=== PATIENT | male | born 1960 | race Caucasian/White ===

== ENCOUNTER 2023-10-21 08:29 | Emergency (ER) | payer OTHER ==
--- OUTSIDE RECORDS SUMMARY | 2023-10-21 08:34 | XMS REPORT | Continuity of Care Document ---
Author Name Unknown Address [address] [facility] [address] [place] [address] [facility] Address [address] [facility] [place] [address] Care Team Providers Care Dial Polisher Name Role Phone [email or web address] Attending Clinician Unavailable BAILEY PENG Attending Clinician Unavailable YAMILE MIGUEL Attending Clinician Unavailable [id number] Attending Clinician Unavailable FELICIANO GÓMEZ Attending Clinician Unava ilable MD MEMO Attending Clinician Unavailab NATALIO Back Attending Clinician Unavailable 39, HOLTER Attending Clinician Unavailable CESAR THOMAS Attending Clinician Unav ailable LAB47 Attending Clinician Unavailable MC, TECH 1 Attending Clinician Unavailable LAB39 Attending Clinician Unavailable MANJULA AUSTIN Attending Clinician Unavailable PL, TECH 1 Attending Clinician Unavailable [id number] Attending Clinician Unavailable CLARA ROSE Attending Clinician Unavailable SYMONE LAGUNA Attending Clinician Unavailable MACKENZIE BUTTS Attending Clinician Unavai lable JODI SELLERS Attending Clinician Unavailable SABINO YUEN Attending Clinician Unavailable WYATT TOLEDO Attending Clinician Unav ailable Neil Neff Attending Clinician [phone] Madi Adams Attending Clinician Unavailable SABINO YUEN Admitting Clinician Unavailable WYATT TOLEDO Admitting Clinician Unav ailable Cupit, Neil Ken [id number] Payers Payer Name Policy Type Policy Number Effective Date Expirati on Date Source Self Pay P [id number] 2022 00:00:00 [facility] MIC[facility] S[facility]NEY COPAY FOCUS 9 [id number] 2023 00:00:00 Problems Condition Name Condition Details Condition Category Status Onset Date Resolution Date Last Treatment Date Treating Clinician Comments Source Medication side effect Medication side effect Disease Active 6-12 00:00: 00 Brandy Cheng - Externa l Pre-op evaluation Pre-op evaluation Disease Active -23 00:00: 00 Brandy Ferguson Externa l Shortness of breath Shortness of breath Disease Active 03-22 00:00: 00 Brandy Ferguson Externa yaima HFrEF (heart failure with reduced ejection fraction) (multi HCC) HFrEF (heart failure with reduced ejection fraction) (multi HCC) Disease Active 03-22 00:00: 00 Brandy Teixeiraa yaima Non-ischem ic cardiomyop athy (multi HCC) Non-ischem ic cardiomyop athy (multi HCC) Disease Active 03-22 00:00: 00 Brandy Teixeiraa yaima Statin intoleranc e Statin intoleranc e Disease Active 03-22 00:00: 00 Brandy Cheng - Externa l Exposure to STD Condition Active 07-01 00:00: 00 2020-07-01 15:43:54 [facility] Screening for std Condition Active 07-01 00:00: 00 2020-07-01 15:43:54 [facility] Allergies, Adverse Reactions, Alerts Allergy Name Allergy Type Status Severity Reaction(s) Onset Date Inactive Date Treating Clinician Comments Source Nitrogly cerin Propensi ty to adverse reaction s Active Rash 03-22 00:00: 00 Brandy Ferguson Externa l Social History Social Habit Start Date Stop Date Quantity Comments Source Sexual orientation Jasmin Cheng - External Alcoholic beverage intake 2023-08-03 00:00:00 2023-08-03 00:00:00 Ex-drinker (finding) Brandy Cheng - External History of Social function 2023-05-22 00:00:00 2023-05-22 00:00:00 Brandy Cheng - External Tobacco use and exposure 2023-05-22 00:00:00 2023-05-22 00:00:00 Smokeless tobacco non-user Brandy Cheng - External Alcohol intake 2023-04-19 00:00:00 2023-04-19 00:00:00 Current drinker of alcohol (finding) Brandy Cheng - External Alcohol Comment 2023-03-22 00:00:00 2023-03-22 00:00:00 rarely Brandy Cheng - External PHQ2 Questionairre Score 2020-07-01 09:27:51 2020-07-01 09:27:51 [facility] if the patient is using/has used a vaping item, Current, Former, Never Used, Not asked 2020-07-01 09:27:51 2020-07-01 09:27:51 No [facility] sex at 2020-07-01 09:27:51 2020-07-01 09:27:51 Male [facility] Occupation #1 2020-07-01 09:27:51 2020-07-01 09:27:51 Unemployed [facility] sexual orientation 2020-07-01 09:27:51 2020-07-01 09:27:51 Heterosexual [facility] drug use 2020-07-01 09:27:51 2020-07-01 09:27:51 Never [facility] alcohol use 2020-07-01 09:27:51 2020-07-01 09:27:51 Currently [facility] social history reviewed E&M 2020-07-01 09:27:51 2020-07-01 09:27:51 reviewed today [facility] is there any chance that you could be ? 2020-07-01 09:27:51 2020-07-01 09:27:51 No [facility] Sex assigned at 1960 00:00:00 1960 00:00:00 Brandy Ferguson External Smoking Status Start Date Stop Date Source Never smoked tobacco Brandy Cheng - External Medications Ordered Medication Name Filled Medication Name Start Date Stop Date Current Medication? Ordering Clinician Indication Dosage Frequency Signature (SIG) Comments Components Source Coenzyme Q10 (COQ10 OR) 08-02 10:40: 11 Yes Take by mouth. Brandy erwin Sacubitril- Valsartan (Entresto) 24-26 MG oral Tablet 07-27 00:00: 00 Yes [id number] 24mg Take 24-26 mg by mouth 2 times daily. Brandy erwin Coenzyme Q10 (COQ10 OR) 07-25 14:13: 52 Yes Take by mouth. Brandy erwin Empaglifloz in (Jardiance) 10 MG oral Tablet 07-25 00:00: 00 Yes [id number] 10mg Take 1 tablet (10 mg total) by mouth daily. Brandy erwin Coenzyme Q10 (COQ10 OR) 07-18 10:43: 53 Yes Take by mouth. Brandy erwin Cetirizine HCl (ZyrTEC Allergy) 10 MG oral Capsule 07-18 00:00: 00 08-02 00:00 :00 No [id number] 10mg Take 1 capsule (10 mg total) by mouth daily. Brandy erwin Albuterol HFA 108 (90 Base) MCG/ACT IN AERS 07-18 00:00: 00 07-25 00:00 :00 No [id number] 2{puff} Q.25D Inhale 2 puffs into the lungs every 6 hours as needed for wheezing. Brandy erwin Naproxen 500 MG oral Tablet 06-13 00:00: 00 Yes 500mg Q.5D Take 1 tablet (500 mg total) by mouth 2 times daily as needed (pain, take with food). Brandy erwin Lisinopril 5 MG oral Tablet 06-05 00:00: 00 Yes 5mg Take 1 tablet (5 mg total) by mouth daily. Brandy erwin Carvedilol 6.25 MG oral Tablet 06-05 00:00: 00 Yes 6.25mg Take 1 tablet (6.25 mg total) by mouth in the morning and 1 tablet (6.25 mg total) in the evening. Take with meals. Brandy erwin Coenzyme Q10 (COQ10 OR) 05-21 14:31: 08 Yes Take by mouth. Brandy erwin Azithromyci n 250 MG oral Tablet 05-21 00:00: 00 05-27 04:59 :00 No [id number] Take 2 tablets by mouth on day 1 then 1 tablet by mouth daily for 4 days thereafter .. Brandy erwin Furosemide (LASIX) 20 MG oral Tablet 05-21 00:00: 00 05-27 04:59 :00 No [id number] 20mg Take 1 tablet (20 mg total) by mouth daily for 5 days. Brandy erwin Furosemide 40 MG oral Tablet 05-16 00:00: 00 Yes 40mg QD Take 1 tablet (40 mg total) by mouth daily as needed. Brandy erwin Coenzyme Q10 (COQ10 OR) 03-22 08:27: 15 Yes Take by mouth. Brandy erwin Carvedilol 3.125 MG oral Tablet 03-22 00:00: 00 Yes 3.125mg Take 1 tablet (3.125 mg total) by mouth in the morning and 1 tablet (3.125 mg total) in the evening. Take with meals. Brandy erwin Lisinopril 2.5 MG oral Tablet 03-22 00:00: 00 Yes 2.5mg Take 1 tablet (2.5 mg total) by mouth daily. Brandy erwin Furosemide 40 MG oral Tablet 03-22 00:00: 00 Yes 40mg QD Take 1 tablet (40 mg total) by mouth daily as needed. Brandy erwin Vital Signs Vital Name Observation Time Observation Value Comments S ourdustin Body height 2023-08-03 15:32:00 177.8 cm Christina Andino Body weight 2023-08-03 15:32:00 80.74 kg Christina ey Seybold - External BMI 2023-08-03 15:32:00 25.54 kg/m2 Christina ey Seybold - External Systolic blood pressure 2023-07-26 19:12:00 118 mm[Hg] Brandy Seybo ld - External Diastolic blood pressure 2023-07-26 19:12:00 72 mm[Hg] Brandy Seybo ld - External Heart rate 2023-07-26 19:12:00 76 /min Kelse y Seybold - External Body temperature 2023-07-26 19:12:00 36.94 Sis Brandy Seybold - External Respiratory rate 2023-07-26 19:12:00 18 /min Brandy Seybold - External Body height 2023-07-26 19:12:00 177.8 cm Christina ey Seybold - External Body weight 2023-07-26 19:12:00 80.74 kg Christina ey Seybold - External BMI 2023-07-26 19:12:00 25.54 kg/m2 Christina ey Seybold - External Oxygen saturation in Arterial blood by Pulse oximetry 2023-07-26 19:12:00 95 /min Brandy Seybo ld - External Systolic blood pressure 2023-07-19 15:42:00 118 mm[Hg] Brandy Seybo ld - External Diastolic blood pressure 2023-07-19 15:42:00 72 mm[Hg] Brandy Seybo ld - External Heart rate 2023-07-19 15:42:00 63 /min Yayase y Seybold - External Body temperature 2023-07-19 15:42:00 36.17 Sis Brandy Seybold - External Respiratory rate 2023-07-19 15:42:00 16 /min Brandy Seybold - External Body height 2023-07-19 15:42:00 177.8 cm Christina ey Seybold - External Body weight 2023-07-19 15:42:00 78.926 kg Christina ey Seybold - External BMI 2023-07-19 15:42:00 24.97 kg/m2 Christina ey Seybold - External Oxygen saturation in Arterial blood by Pulse oximetry 2023-07-19 15:42:00 94 /min Brandy Marinao ld - External Oxygen saturation in Arterial blood by Pulse oximetry 2023-06-21 13:29:00 99 /min Brandy Marinao ld - External Systolic blood pressure 2023-06-21 13:29:00 113 mm[Hg] Brandy Katybo ld - External Diastolic blood pressure 2023-06-21 13:29:00 74 mm[Hg] Brandy Katybo ld - External Heart rate 2023-06-21 13:29:00 65 /min Kelse y Seybold - External Respiratory rate 2023-06-21 13:29:00 16 /min Brandy Katybold - External Body height 2023-06-21 13:29:00 177.8 cm Christina ramachandran Seybold - External Body weight 2023-06-21 13:29:00 79.379 kg Christina ey Seybold - External BMI 2023-06-21 13:29:00 25.11 kg/m2 Christina ey Seybold - External Systolic blood pressure 2023-05-22 19:31:00 110 mm[Hg] Brandy Katybo ld - External Diastolic blood pressure 2023-05-22 19:31:00 90 mm[Hg] Brandy Marinao ld - External Heart rate 2023-05-22 19:31:00 80 /min Kelse y Seybold - External Body temperature 2023-05-22 19:31:00 36.67 Sis Brandy Seybold - External Respiratory rate 2023-05-22 19:31:00 16 /min Brandy Ktaybold - External Body weight 2023-05-22 19:31:00 80.287 kg Christina ey Seybold - External BMI 2023-05-22 19:31:00 25.40 kg/m2 Christina ey Seybold - External Oxygen saturation in Arterial blood by Pulse oximetry 2023-05-22 19:31:00 99 /min room air Brandy Marinao ld - External blood pressure, diastolic 2020-07-01 09:27:51 87 mm[Hg] [facility] blood pressure, systolic 2020-07-01 09:27:51 146 mm[Hg] [facility] oxygen saturation, oximetry 2020-07-01 09:27:51 98 /min [facility] pulse rate 2020-07-01 09:27:51 67 /min Leg y [facility] temperature E&M 2020-07-01 09:27:51 98.0 [degF[facility] 2020-07-01 09:27:51 207 [facility]lb[facility]av[facility] 2020-07-01 09:27:51 94.09 kg [facility] height in centimeters E&M 2020-07-01 09:27:51 177.80 cm [facility] temperature site 2020-07-01 09:27:51 oral [facility] Procedures Procedure Date / Time Performed Performing Clinician Source SLEEP PAP DATA DOWNLOAD 2023-06-21 13:36:08 Ronald Peng Seybsergei - External CHEST PA LATERAL 2023-05-22 21:09:35 Clara Rose Seybsergei - External Azithromycin oral 2020-07-01 10:55:09 Neil Neff Leg leela [facility] En[facility]ters Start Date/Time End Date/Time Encounter Type Admission Type Attending Clinicians Care Facility Care Department Encounter ID Source 2022-04-01 07:49:[address] [facility] [id number] [facility] 2022-03-08 09:35:34 Outpatient D [facility] [id number] - [id number] [facility] 2021-03-11 10:51:07 Outpatient D [facility] [id number] - [id number] [facility] ent 2023-10-09 00:00:00 2023-10-09 00:00:00 Outpatient BAILEY PENG [id number] [facility] 2023-10-09 00:00:00 2023-10-09 00:00:00 Outpatient YAMILE MIGUEL [id number] [facility] 2023-10-09 00:00:00 2023-10-09 00:00:00 Outpatient YAMILE MIGUEL [id number] [facility] 2023-08-30 00:00:00 2023-08-30 00:00:00 Outpatient BRANDY BOURGEOIS [id number] Brandy Katybsergei 2023-08-23 09:30:00 2023-08-23 09:30:00 Outpatient YAMILE MIGUEL BRANDY [id number] Brandy Katybsergei 2023-08-18 15:00:00 2023-08-18 15:00:00 Outpatient BRANDY BOURGEOIS [id number] Brandy Katybsergei 2023-08-16 00:00:00 2023-08-16 00:00:00 Outpatient YAMILE MIGUEL BRANDY BRANDY [id number] Brandy Katybsergei 2023-08-15 00:00:00 2023-08-15 00:00:00 Outpatient YAMILE MIGUEL BR[facility] BOURGEOIS [id number] [facility] 2023-08-15 00:00:00 2023-08-15 00:00:00 Outpatient YAMILE MIGUEL BR[facility] BOURGEOIS [id number] [facility] 2023-08-15 00:00:00 2023-08-15 00:00:00 Outpatient YAMILE MIGUEL BRANDY BR[facility]Y [id number] [facility] 2023-08-15 00:00:00 2023-08-15 00:00:00 Outpatient YAMILE MIGUEL BRANDY BR[facility]Y [id number] [facility] 2023-08-08 13:00:00 2023-08-08 13:00:00 Outpatient BRANDY BOURGEOIS [id number] [facility] 2023-08-03 14:30:00 2023-08-03 14:30:00 Outpatient BRANDY BOURGEOIS [id number] [facility] 2023-08-03 11:05:00 2023-08-03 11:05:00 Outpatient EWA515Seamus BOURGEOIS [id number] [facility] 2023-08-03 10:15:00 2023-08-03 10:15:00 Outpatient FELICIANO WHITLOCK [id number] [facility] 2023-08-03 00:00:00 2023-08-03 00:00:00 Outpatient BAILEY PENG [id number] [facility] 2023-08-03 00:00:00 2023-08-03 00:00:00 Outpatient MD BRANDY CABRALES [id number] [facility] 2023-08-02 00:00:00 2023-08-02 00:00:00 Outpatient YAMILE MIGUEL [id number] [facility] 2023-08-01 15:45:00 2023-08-01 15:45:00 Outpatient NATALIO PHILLIPS BRANDY BOURGEOIS [id number] [facility] 2023-07-26 14:00:00 2023-07-26 14:00:00 Outpatient BAILEY PENG [id number] [facility] 2023-07-26 10:30:00 2023-07-26 10:30:00 Outpatient 39, HOLTER BRANDY BOURGEOIS [id number] [facility] 2023-07-26 10:15:00 2023-07-26 10:15:00 Outpatient 39, HOLTER BRANDY BOURGEOIS [id number] [facility] 2023-07-26 09:50:00 2023-07-26 09:50:00 Outpatient YAMILE MIGUEL [id number] [facility] 2023-07-25 00:00:00 2023-07-25 00:00:00 Outpatient CESAR THOMAS [id number] [facility] 2023-07-25 00:00:00 2023-07-25 00:00:00 Outpatient BAILEY PENG [id number] [facility] 2023-07-25 00:00:00 2023-07-25 00:00:00 Outpatient BRANDY BOURGEOIS [id number] Brandy Seybsergei 2023-07-24 00:00:00 2023-07-24 00:00:00 Outpatient BAILEY PENG [id number] [facility] 2023-07-19 13:10:00 2023-07-19 13:10:00 Outpatient [facility] BRANDY BOURGEOIS [id number] Brandy Prosper 2023-07-19 10:45:00 2023-07-19 10:45:00 Outpatient CESAR THOMAS BRANDY BOURGEOIS [id number] Brandy ybsergei 2023-07-17 00:00:00 2023-07-17 00:00:00 Outpatient MD BRANDY CABRALES [id number] Brandy ybsergei 2023-07-14 13:15:00 2023-07-14 13:15:00 Outpatient BRANDY BOURGEOIS [id number] [facility] 2023-07-14 00:00:00 2023-07-14 00:00:00 Outpatient YAMILE MIGUEL [id number] [facility] 2023-07-14 00:00:00 2023-07-14 00:00:00 Outpatient BAILEY PENG [id number] [facility] 2023-07-13 00:00:00 2023-07-13 00:00:00 Outpatient BAILEY PENG [id number] [facility] 2023-07-11 00:00:00 2023-07-11 00:00:00 Outpatient YAMILE MIGUEL [id number] Brandy ybsergei 2023-06-21 09:30:00 2023-06-21 09:30:00 Outpatient RADHA MCCARTY [id number] [facility] 2023-06-21 08:30:00 2023-06-21 08:30:00 Outpatient BAILEY PENG [id number] [facility] 2023-06-20 00:00:00 2023-06-20 00:00:00 Outpatient BAILEY PENG [id number] [facility]andy Sey[facility]i 2023-06-20 00:00:00 2023-06-20 00:00:00 Outpatient BAILEY PENG [id number] [facility] 2023-06-20 00:00:00 2023-06-20 00:00:00 Outpatient YAMILE MIGUEL [id number] [facility] 2023-06-16 15:45:00 2023-06-16 15:45:00 Outpatient LAB39 BRANDY BOURGEOIS [id number] Brandy Seybold 2023-06-16 15:15:00 2023-06-16 15:15:00 Outpatient BRANDY BOURGEOIS [id number] Brandy ybs[facility]i 2023-06-16 15:00:00 2023-06-16 15:00:00 Outpatient RADHA MCCARTY [id number] [facility] 2023-06-16 00:00:00 2023-06-16 00:00:00 Outpatient MD BRANDY CABRALES [id number] [facility]andy [facility] 2023-06-15 00:00:00 2023-06-15 00:00:00 Outpatient BAILEY PENG [id number] [facility] 2023-06-15 00:00:00 2023-06-15 00:00:00 Outpatient BAILEY PENG [id number] [facility] 2023-06-15 00:00:00 2023-06-15 00:00:00 Outpatient BRANDY BOURGEOIS [id number] Brandy Sey[facility]i 2023-06-14 07:30:00 2023-06-14 07:30:00 Outpatient MANJULA AUSTIN [id number] [facility] 2023-06-08 00:00:00 2023-06-08 00:00:00 Outpatient MD BRANDY CABRALES [id number] Brandy david 2023-06-07 00:00:00 2023-06-07 00:00:00 Outpatient MD BRANDY CABRALES [id number] Brandy Sey[facility]i 2023-06-07 00:00:00 2023-06-07 00:00:00 Outpatient BRANDY BOURGEOIS [id number] Brandy Cheng 2023-06-06 13:20:00 2023-06-06 13:20:00 Outpatient YAMILE MIGUEL [id number] Brandy Sey[facility]i 2023-06-01 00:00:00 2023-06-01 00:00:00 Outpatient MYMD BRANDY OBREGON [id number] Brandy ybsergei 2023-05-31 00:00:00 2023-05-31 00:00:00 Outpatient BAILEY PENG [id number] [facility] 2023-05-26 00:00:00 2023-05-26 00:00:00 Outpatient MANJULA AUSTIN [id number] Brandy ybs[facility]i 2023-05-26 00:00:00 2023-05-26 00:00:00 Outpatient MD BRANDY CABRALES [id number] Brandy ybsergei 2023-05-25 11:30:00 2023-05-25 11:30:00 Outpatient RADHA LOUIE [id number] [facility] 2023-05-25 00:00:00 2023-05-25 00:00:00 Outpatient MD BRANDY CABRALES [id number] [facility] 2023-05-22 16:00:00 2023-05-22 16:00:00 Outpatient BRANDY BOURGEOIS [id number] [facility] 2023-05-22 15:05:00 2023-05-22 15:05:00 Outpatient MRI035 BRANDY BOURGEOIS [id number] [facility] 2023-05-22 15:00:00 2023-05-22 15:00:00 Outpatient [id number] BRANDY BOURGEOIS [id number] [facility] 2023-05-22 14:30:00 2023-05-22 14:30:00 Outpatient CLARA ROSE [id number] [facility] 2023-05-22 00:00:00 2023-05-22 00:00:00 Outpatient BAILEY PENG [id number] [facility] 2023-05-22 00:00:00 2023-05-22 00:00:00 Outpatient YAMILE MIGUEL [id number] [facility] 2023-05-22 00:00:00 2023-05-22 00:00:00 Outpatient BRANDY BOURGEOIS [id number] [facility] 2023-05-21 00:00:00 2023-05-21 00:00:00 Outpatient SYMONE LAGUNA BRANDY BOURGEOIS [id number] [facility] 2023-05-16 11:15:00 2023-05-16 11:15:00 Outpatient MANJULA AUSTIN BRANDY BOURGEOIS [id number] [facility] 2023-05-16 00:00:00 2023-05-16 00:00:00 Outpatient MYRIAM YAMILEMilagros BOURGOEIS [id number] [facility] 2023-05-04 08:00:00 2023-05-04 08:00:00 Outpatient YAMILE MIGUEL [id number] [facility] 2023-04-19 09:30:00 2023-04-19 09:30:00 Outpatient BAILEY PENG BRANDY BOURGEOIS [id number] [facility] 2023-04-10 00:00:00 2023-04-10 00:00:00 Outpatient NORMAN MANJULA BOURGEOIS [id number] [facility] 2023-03-28 11:10:00 2023-03-28 11:10:00 Outpatient MACKENZIE BUTTS BRANDY BOURGEOIS [id number] [facility] 2023-03-22 08:30:00 2023-03-22 08:30:00 Outpatient DARYL MIGUELMilagros BOUREGOIS [id number] [facility] 2023-03-22 08:30:00 2023-03-22 08:30:00 Outpatient 37 KIP BRANDY BOURGEOIS [id number] [facility] 2023-03-16 07:45:39 2023-03-16 11:23:15 Outpatient D Jimmie [id number] [facility] 2022-03-08 07:35:31 2022-03-08 07:35:31 Outpatient VERITO JODI D D [id number] [facility] 2022-03-04 07:18:52 2022-03-04 08:43:48 Outpatient SABINO YUEN D D [id number] [facility] 2021-03-11 08:54:46 2021-03-11 11:06:24 Outpatient ROOSEVELT KAUFFMANWYATT D D [id number] [facility] ent 2020-07-02 00:00:00 2020-07-02 00:00:00 Outpatient D D [id number] [facility] ent 2020-07-01 00:00:00 2020-07-01 00:00:00 Office Visit AishwaryaNeil Irza [facility] Encounter/ [id number] [facility] Results Test Description Test Time Test Comments Results Resul t Comments Source CHEST PA LATERAL 8 21:19:36 EXAM: CHEST PA ?LATERAL HISTORY: cough, shortness of breath VIEWS: 2 views COMPARISON: None FINDINGS: The lungs are clear. No pleural effusion or pneumothorax. The cardiomediastinal silhouette is normal. No acute osseous abnormality. Brandy Cheng - External Notes Date/Time Note Provider Source 2023-07-26 14:12:52 Chief Complaint Patient presents with Follow-up Follow up with silvana Kim Otto CMA I Kim GARCIA I [facility] 2023-07-19 10:43:54 Chief Complaint Patient presents with Establish Care Shortness of Breath Mold exposure , sob , coughing x 3 day Myesha Nicholson CMA II T [facility] 2023-06-21 08:28:47 Chief Complaint Patient presents with Follow-up With SILVANA KASANDRA Garnica T [facility] 2023-05-22 14:30:46 Chief Complaint Patient presents with Cough Cough with mucus [facility]
[2023-10-21 09:07] LABS: SARS-CoV-2 Antigen CONTROL BLUE LINE VIS/BG OK; SARS-CoV-2 Antigen Rapid Res Negative (Negative)
[2023-10-21] MEDS ORDERED: LEVALBUTEROL 1.25 MG/3 ML NEB ONE (09:30)
[2023-10-21] MEDS ORDERED: AZITHROMYCIN 250 MG TAB ONE (09:30)
[2023-10-21] MEDS ORDERED: IPRATROPIUM BROM 0.5MG/2.5ML ONE (09:30)
[2023-10-21 09:55] LABS: Absolute Eosinophils 0.3 K/uL (0-0.5); Absolute Lymphocytes (CBC) 0.5 K/uL (0.7-4.9); Absolute Monocytes 0.9 K/uL (0.1-1.3); Absolute Neutrophil 5.5 K/uL (1.8-8.0); Basophils % 0.6 % (0-1.3); Eosinophils % 4.4 % (0-4.4); Hematocrit 42.1 % (39.6-49.0); Hemoglobin 13.9 g/dL (13.6-17.9); Lymphocytes % 6.9 % (15.3-44.8); MCH 31.8 pg (27.0-35.0); MCV 96.1 fL (80-100); MPV 8.4 fL (7.6-11.3); Monocytes % 12.4 % (3.3-12.3); Neutrophils % 75.7 % (41.7-73.7); Nucleated Red Blood Cells % 0.1 % (0-0); Platelets 204 thou/uL (152-406); RBC Red Blood Cell Count 4.38 M/uL (4.33-5.43); Red Cell Distribution Width 14.7 % (12.1-15.2)
[2023-10-21 09:56] LABS: PT Prothrombin Time 14.6 SECONDS (9.4-12.5); Protime INR 1.31
[2023-10-21 10:13] LABS: Albumin 3.7 g/dL (3.4-5.0); Albumin/Globulin Ratio 0.9 (1.1-1.8); Anion Gap 10.8 mEq/L (5.0-15.0); Bilirubin Direct 0.5 mg/dL (0-0.2); Bilirubin Indirect, Calculated 0.6 mg/dL (0.2-0.8); Bilirubin Total 1.1 mg/dL (0.2-1.0); Globulin 4.3 g/dL (2.3-3.5); Magnesium 2.1 mg/dL (1.6-2.4); Potassium 3.8 mEq/L (3.5-5.1); Troponin High Sensitivity 16.3 pg/mL (<58.9)
--- NOTE | 2023-10-21 10:56 | RAD REPORT ---
EXAM DESCRIPTION: RAD - Chest Pa And Lat (2 Views) - 10/21/2023 9:06 am CLINICAL HISTORY: COUGH COMPARISON: CHEST SINGLE VIEW dated 01/15/2015; CHEST PA AND LAT 2 VIEW dated 08/04/2014; CHEST SINGLE VIEW dated 08/02/2014; CHEST PA AND LAT 2 VIEW dated 08/01/2014 TECHNIQUE: PA and lateral views of the chest were obtained. FINDINGS: The lungs are clear. Heart size is normal and central vasculature is within normal limits. No pleural effusion or pneumothorax seen. No acute bony finding noted. IMPRESSION: No acute cardiopulmonary process.
--- NOTE | 2023-10-21 11:09 | EDPHYS ---
Physician Documentation [facility] Name: Jef Farnz Age: 62 yrs Sex: Male : 1960 Arrival Date: 10/21/2023 Time: 08:29 Bed 15 Private MD: ED Physician Barry Moreira HPI: 10/20 11:03 This 62 yrs old Male presents to ER via Ambulatory with complaints of Cold nataliya Symptoms. 11:03 The patient has shortness of breath at rest, with light activity. Onset: The nataliya symptoms/episode began/occurred 2 day(s) ago. Duration: The symptoms are continuous, and are steadily getting worse. The patient's shortness of breath is aggravated by coughing, supine position, is alleviated by elevating head. The patient or guardian reports cough, flu symptoms, arthralgias, low-grade fever, myalgias, hoarse voice. Modifying factors: The symptoms are alleviated by nothing. the symptoms are aggravated by nothing. Associated signs and symptoms: Pertinent positives: non-productive cough, fever. Severity of symptoms: At their worst the symptoms were mild in the emergency department the symptoms are unchanged. The patient or guardian reports difficulty breathing. Historical: - Allergies: 08:44 Nitroglycerin; ll1 - Home Meds: 09:24 Jardiance 10 mg oral tablet 1 tab daily [Active]; lisinopril 2.5 mg Oral tablet 1 tab ll1 daily [Active]; spironolactone 25 mg Oral tablet 0.5 tabs daily [Active]; carvedilol 3.125 mg oral tablet 1 tab 2 times per day [Active]; - PMHx: 08:44 CHF; ll1 - PSHx: 08:44 None; ll1 - Immunization history:: Adult Immunizations up to date. - Infectious Disease History:: Denies. - Social history:: Smoking status: Patient denies any tobacco usage or history of. - Family history:: not pertinent. ROS: 11:03 Constitutional: Negative for fever, chills, and weight loss, Eyes: Negative for injury, nataliya pain, redness, and discharge, ENT: Negative for injury, pain, and discharge, Neck: Negative for injury, pain, and swelling, Cardiovascular: Negative for chest pain, palpitations, and edema, Abdomen/GI: Negative for abdominal pain, nausea, vomiting, diarrhea, and constipation, Back: Negative for injury and pain, : Negative for injury, bleeding, discharge, and swelling, MS/Extremity: Negative for injury and deformity, Skin: Negative for injury, rash, and discoloration, Neuro: Negative for headache, weakness, numbness, tingling, and seizure, Psych: Negative for depression, anxiety, suicide ideation, homicidal ideation, and hallucinations, Allergy/Immunology: Negative for hives, rash, and allergies, Endocrine: Negative for neck swelling, polydipsia, polyuria, polyphagia, and marked weight changes, Hematologic/Lymphatic: Negative for swollen nodes, abnormal bleeding, and unusual bruising, 11:03 Respiratory: Positive for cough, "sounds productive", 11:03 MS/extremity: Negative for acute changes, Exam: 11:03 Constitutional: This is a well developed, well nourished patient who is awake, alert, nataliya and in no acute distress. Head/Face: Normocephalic, atraumatic. Eyes: Pupils equal round and reactive to light, extra-ocular motions intact. Lids and lashes normal. Conjunctiva and sclera are non-icteric and not injected. Cornea within normal limits. Periorbital areas with no swelling, redness, or edema. ENT: Nares patent. No nasal discharge, no septal abnormalities noted. Tympanic membranes are normal and external auditory canals are clear. Oropharynx with no redness, swelling, or masses, exudates, or evidence of obstruction, uvula midline. Mucous membranes moist. Neck: Trachea midline, no thyromegaly or masses palpated, and no cervical lymphadenopathy. Supple, full range of motion without nuchal rigidity, or vertebral point tenderness. No Meningismus. Chest/axilla: Normal chest wall appearance and motion. Nontender with no deformity. No lesions are appreciated. Cardiovascular: Regular rate and rhythm with a normal S1 and S2. No gallops, murmurs, or rubs. Normal PMI, no JVD. No pulse deficits. Abdomen/GI: Soft, non-tender, with normal bowel sounds. No distension or tympany. No guarding or rebound. No evidence of tenderness throughout. Back: No spinal tenderness. No costovertebral tenderness. Full range of motion. Male : Normal genitalia with no discharge or lesions. Skin: Warm, dry with normal turgor. Normal color with no rashes, no lesions, and no evidence of cellulitis. MS/ Extremity: Pulses equal, no cyanosis. Neurovascular intact. Full, normal range of motion. Neuro: Awake and alert, GCS 15, oriented to person, place, time, and situation. Cranial nerves II-XII grossly intact. Motor strength 5/5 in all extremities. Sensory grossly intact. Cerebellar exam normal. Normal gait. Psych: Awake, alert, with orientation to person, place and time. Behavior, mood, and affect are within normal limits. 11:03 ECG was reviewed by the Attending Physician. 11:03 Respiratory: the patient does not display signs of respiratory distress, Respirations: normal, Breath sounds: bronchial sounds, that are moderate, are scattered, decreased breath sounds, that are mild, are scattered, rhonchi, that are mild, are located in both bases, stridor, is not appreciated, + upper airway congestion. wheezing: expiratory that is mild, Vital Signs: 08:44 BP 108 / 88; Pulse 74; Resp 16; Temp 97.6; Pulse Ox 100% on R/A; Weight 79.38 kg; ll1 Height 5 ft. 10 in. ; Pain 4/10; 09:41 BP 112 / 70; Pulse 72; Resp 20; Pulse Ox 100% on Nebulizer Mask; db 10:00 BP 112 / 97; Pulse 76; Resp 22; Pulse Ox 97% ; db 10:30 BP 116 / 79; Pulse 73; Resp 22; Pulse Ox 97% on R/A; db 11:00 BP 115 / 75; Pulse 72; Resp 18; Pulse Ox 98% ; db 08:44 Body Mass Index 25.11 (79.38 kg, 177.8 cm) ll1 08:44 Pain Scale: Adult ll1 MDM: 08:37 Patient medically screened. nataliya 11:06 Differential diagnosis: asthma, Bronchitis CHF exacerbation, Chronic Obstructive nataliya Pulmonary Disease obstructed airway, bronchitis, flu, URI, Myocardial Infarction pneumonia, Pneumothorax pulmonary edema, reactive airway disease, Unstable Angina. Antibiotic administration: The patient is discharged and will get outpatient antibiotics, Zithromax. Differential Diagnosis: Obstructed Airway Bronchitis Influenza Upper Respiratory Infection Sinusitis Pharyngitis Asthma Exacerbation Viral Syndrome Pneumonia. Immunization status: Influenza vaccine: within last 5 years. Data reviewed: vital signs, nurses notes, lab test result(s), EKG, radiologic studies, plain films. Consideration of Admission/Observation Patient was admitted/placed on observation. Escalation of care including admission/observation considered. I considered the following discharge prescriptions or medication management in the emergency department Medications were administered in the Emergency Department. See MAR. Independent interpretation of the following test(s) in the Emergency Department EKG: See my EKG interpretation above. Test considered but Not performed: CT: no ct chest. Historians other than the Patient: pt well informed. Care significantly affected by the following chronic conditions: Congestive Heart Failure. Counseling: I had a detailed discussion with the patient and/or guardian regarding the historical points, exam findings, and any diagnostic results supporting the discharge/admit diagnosis, lab results, radiology results, the need for outpatient follow up, for definitive care, a control clerk head, a family practitioner. 10/20 08:37 Order name: Flu; Complete Time: 11:02 [facility] 10/20 08:37 Order name: SARS RAPID; Complete Time: 11:02 [facility] 10/20 09:03 Order name: Basic Metabolic Panel; Complete Time: 11: [facility] 10/20 09:03 Order name: CBC with Diff; Complete Time: 11:02 [facility] 10/20 09:03 Order name: LFT's; Complete Time: 11:02 [facility] 10/20 09:03 Order name: Magnesium; Complete Time: 11:02 [facility] 10/20 09:03 Order name: NT PRO-BNP; Complete Time: 11:02 [facility] 10/20 09:03 Order name: PT-INR; Complete Time: 11:02 [facility] 10/20 09:03 Order name: Troponin HS; Complete Time: 11:02 [facility] 10/20 09:03 Order name: Blood Culture Adult (2) [facility] 10/20 09:03 Order name: Lactate w/ 2H reflex if indic.; Complete Time: 11:02 [facility] 10/20 08:44 Order name: Chest Pa And Lat (2 Views) XRAY; Complete Time: 11:02 [facility] 10/20 09:03 Order name: Cardiac monitoring; Complete Time: 09:50 [facility] 10/20 09:03 Order name: EKG - Nurse/Tech; Complete Time: 09:50 [facility] 10/20 09:03 Order name: IV Saline Lock; Complete Time: 09:50 [facility] 10/20 09:03 Order name: Labs collected and sent; Complete Time: 09:50 [facility] 10/20 09:03 Order name: O2 Per Protocol; Complete Time: :50 [facility] 10/20 09: Order name: O2 Sat Monitoring; Complete Time: [facility] EC: Rate is 73 beats/min. Rhythm is regular. QRS [place] is Normal. IN interval is normal. QRS nataliya interval is normal. QT interval is normal. No Q waves. T waves are Normal. Clinical impression: NSR w/ Non-specific ST/T Changes, 1st degree heart block, and No evidence of ischemia. Interpreted by me. Reviewed by me. Administered Medications: 09:34 Drug: Levalbuterol Inhalation 1.25 mg Inhalation once Route: Inhalation; db 12:18 Follow up: Response: No adverse reaction; Wheezing diminished me1 09:34 Drug: Ipratropium Inhalation Aerosol 0.5 mg Inhalation once Route: Inhalation; db 12:18 Follow up: Response: No adverse reaction; Wheezing diminished me1 09:58 Drug: AZITHromycin PO 500 mg PO once Route: PO; db 12:18 Follow up: Response: No adverse reaction me1 11:18 Drug: Oseltamivir PO 75 mg PO once Route: PO; db 12:19 Follow up: Response: No adverse reaction me1 11:24 Drug: Furosemide IVP 20 mg IVP once; give over 2 minutes Route: IVP; Site: right db antecubital; 12:19 Follow up: Response: No adverse reaction me1 Disposition Summary: 10/21/23 11:09 Discharge Ordered Notes: Location: Home nataliya Problem: new nataliya Symptoms: have improved nataliya Condition: Stable nataliya Diagnosis - Influenza due to identified novel influenza A virus nataliya - Acute upper respiratory infection, unspecified nataliya - Chronic combined systolic (congestive) and diastolic (congestive) heart failure nataliya Followup: nataliya - With: Private Physician - When: 2 - 3 days - Reason: Recheck today's complaints, Continuance of care, Re-evaluation by your physician Followup: nataliya - With: Daryn Martinez MD - When: 2 - 3 days - Reason: Recheck today's complaints, Re-evaluation by your physician Discharge Instructions: - Discharge Summary Sheet nataliya - Fever, Adult nataliya - Influenza, Adult nataliya - Upper Respiratory Infection, Adult nataliya - Upper Respiratory Infection, Adult, [id number] nataliya - Influenza, Adult, [id number]-[id number] nataliya - Viral Respiratory Infection, [id number] nataliya - Cough, Adult [facility] - Fever, Adult, [id number] [facility] - Heart Failure, Self-Care, [id number] [facility] Forms: - Medication Reconciliation Form [facility] - Antibiotic Education [facility] - Prescription Opioid Use [facility] - Patient Portal Instructions [facility] - Leadership Thank You Letter [facility] Prescriptions: - albuterol sulfate 90 mcg/actuation Inhalation HFA Aerosol Inhaler - inhale 2 inhalation INHALATION route every 4-6 hours as needed for shortness of nataliya breath or wheezing; 1 unit; Refills: 0, Product Selection Permitted - Tessalon Perles 100 mg Oral capsule - take 2 capsule ORAL route every 8 hours As needed; 30 capsule; Refills: 0, [facility] Product Selection Permitted - Tamiflu 75 mg Oral capsule - take 1 tablet ORAL route every 12 hours for 5 days; 10 tablet; Refills: 0, [facility] Product Selection Permitted - Guaifenesin AC 10-100 mg/5 mL Oral liquid - take 7.5 milliliter ORAL route every 6 hours As needed prn cough; 160 nataliya milliliter; Refills: 0, Product Selection Permitted - Zithromax 500 mg Oral tablet - take 1 tablet ORAL route once daily for 4 days; 4 tablet; Refills: 0, Product [facility] Selection Permitted Signatures: Dispatcher [employer] Barry Roche MD MD cha Lewis, Lynsay RN RN ll1 Shannon Medrano RN RN db Lorenza Roper RN me1
--- NOTE | 2023-10-21 11:09 | ER ---
Nurse's Notes [facility] Name: Jef Franz Age: 62 yrs Sex: Male : 1960 Arrival Date: 10/21/2023 Time: 08:29 Bed 15 Private MD: Diagnosis: Influenza due to identified novel influenza A virus;Acute upper respiratory infection, unspecified;Chronic combined systolic (congestive) and diastolic (congestive) heart failure Presentation: 10/20 08:44 Coronavirus screen: Client indicates they have traveled out of the [place] in the last 14 ll1 days. Client traveled to: [facility] congestion, cough unrelated to allergies, fatigue, sore throat, Client presents with at least one sign or symptom that may indicate coronavirus-19. Standard/surgical mask placed on the client. Ebola Screen: Patient denies travel to an Ebola-affected area in the 21 days before illness onset. Initial Sepsis Screen: Does the patient meet any 2 criteria? No. Patient's initial sepsis screen is negative. Does the patient have a suspected source of infection? No. Patient's initial sepsis screen is negative. Risk Assessment: Do you want to hurt yourself or someone else? Patient reports no desire to harm self or others. Onset of symptoms was October 18, 2023. 08:44 Method Of Arrival: Ambulatory ll1 08:44 Acuity: YADIRA 4 ll1 08:44 Chief complaint: Patient states: Congestion, nasal drainage, sore throat (resolved) ll1 started Monday. No fever. Triage Assessment: 08:44 General: Appears in no apparent distress. Behavior is calm, cooperative, appropriate ll1 for age. Pain: Denies pain. EENT: Reports nasal congestion pain when swallowing. Respiratory: Reports cough that is. Historical: - Allergies: 08:44 Nitroglycerin; ll1 - Home Meds: 09:24 Jardiance 10 mg oral tablet 1 tab daily [Active]; lisinopril 2.5 mg Oral tablet 1 tab ll1 daily [Active]; spironolactone 25 mg Oral tablet 0.5 tabs daily [Active]; carvedilol 3.125 mg oral tablet 1 tab 2 times per day [Active]; - PMHx: 08:44 CHF; ll1 - PSHx: 08:44 None; ll1 - Immunization history:: Adult Immunizations up to date. - Infectious Disease History:: Denies. - Social history:: Smoking status: Patient denies any tobacco usage or history of. - Family history:: not pertinent. Screenin:01 [facility] ED Fall Risk Assessment (Adult) History of falling in the last 3 months, db including since admission No falls in past 3 months (0 pts) Confusion or Disorientation No (0 pts) Intoxicated or Sedated No (0 pts) Impaired Gait No (0 pts) Mobility Assist Device Used No (0 pt) Altered Elimination No (0 pt) Score/Fall Risk Level 0 - 2 = Low Risk Oriented to surroundings, Maintained a safe environment. Abuse screen: Denies threats or abuse. Denies injuries from another. Nutritional screening: No deficits noted. Tuberculosis screening: No symptoms or risk factors identified. Assessment: 09:01 Reassessment: Patient appears in no apparent distress at this time. Patient and/or db family updated on plan of care and expected duration. Pain level reassessed. Patient is alert, oriented x 3, equal unlabored respirations, skin warm/dry/pink. General: Appears in no apparent distress. comfortable, Behavior is calm, cooperative, appropriate for age. Neuro: Level of Consciousness is awake, alert, obeys commands, Oriented to person, place, time, situation. Respiratory: Airway is patent Respiratory effort is even, unlabored, Respiratory pattern is regular, symmetrical. 10:40 Reassessment: Patient appears in no apparent distress at this time. Patient and/or db family updated on plan of care and expected duration. Pain level reassessed. Patient is alert, oriented x 3, equal unlabored respirations, skin warm/dry/pink. Vital Signs: 08:44 BP 108 / 88; Pulse 74; Resp 16; Temp 97.6; Pulse Ox 100% on R/A; Weight 79.38 kg; ll1 Height 5 ft. 10 in. ; Pain 4/10; 09:41 BP 112 / 70; Pulse 72; Resp 20; Pulse Ox 100% on Nebulizer Mask; db 10:00 BP 112 / 97; Pulse 76; Resp 22; Pulse Ox 97% ; db 10:30 BP 116 / 79; Pulse 73; Resp 22; Pulse Ox 97% on R/A; db 11:00 BP 115 / 75; Pulse 72; Resp 18; Pulse Ox 98% ; db 08:44 Body Mass Index 25.11 (79.38 kg, 177.8 cm) ll1 08:44 Pain Scale: Adult ll1 ED Course: 08:35 Patient arrived in ED. sj2 08:37 Barry Moreira MD is Attending Physician. nataliya 08:43 Arm band placed on Patient placed in an exam room, on a stretcher. ll1 08:45 Triage completed. ll1 08:58 COVID swab sent to lab. Flu and/or RSV swab sent to lab. oh1 09:00 Shannon Medrano, ALONSO is Primary Nurse. db 09:01 SARS RAPID Sent. oh1 09:01 Flu Sent. oh1 09:07 Chest Pa And Lat (2 Views) XRAY In Process Unspecified. EDMS 09:12 Inserted saline lock: 20 gauge in right forearm, using aseptic technique. Blood oh1 collected. Flushed with 10 mL NS. 11:08 Daryn Martinez MD is Referral Physician. nataliya 11:49 Maintain EMS IV. IV discontinued, intact, bleeding controlled, No redness/swelling at oh1 site. Pressure dressing applied. 12:15 Patient has correct armband on for positive identification. Bed in low position. Call me1 light in reach. Side rails up X 1. Provided Education on: POC. Verbalized understanding. . 12:15 No provider procedures requiring assistance completed. me1 12:15 IV discontinued, intact, bleeding controlled, No redness/swelling at site. Pressure me1 dressing applied. Administered Medications: 09:34 Drug: Levalbuterol Inhalation 1.25 mg Inhalation once Route: Inhalation; db 12:18 Follow up: Response: No adverse reaction; Wheezing diminished me1 09:34 Drug: Ipratropium Inhalation Aerosol 0.5 mg Inhalation once Route: Inhalation; db 12:18 Follow up: Response: No adverse reaction; Wheezing diminished me1 09:58 Drug: AZITHromycin PO 500 mg PO once Route: PO; db 12:18 Follow up: Response: No adverse reaction me1 11:18 Drug: Oseltamivir PO 75 mg PO once Route: PO; db 12:19 Follow up: Response: No adverse reaction me1 11:24 Drug: Furosemide IVP 20 mg IVP once; give over 2 minutes Route: IVP; Site: right db antecubital; 12:19 Follow up: Response: No adverse reaction me1 Medication: 09:02 VIS not applicable for this client. db Outcome: 11:09 Discharge ordered by . nataliya 12:15 Discharged to home ambulatory, me1 12:15 Condition: stable 12:15 Discharge instructions given to patient, Instructed on discharge instructions, follow up and referral plans. medication usage, Demonstrated understanding of instructions, follow-up care, medications, Prescriptions given X x5 12:19 Patient left the ED. me1 Signatures: Dispatcher [employer] [facility] Barry Moreira MD MD cha Lewis, Lynsay, ALONSO RN 1 Shannon Medrano RN RN db Lorenza Roper RN RN me1 Janis Morrow oh1 Diana Springer sj2 Corrections: (The following items were deleted from the chart) 11:49 11:48 Inserted saline lock: 20 gauge in right forearm, using aseptic technique. Blood oh1 collected. Flushed with 10 mL NS oh1
[2023-10-21] MEDS ORDERED: OSELTAMIVIR 75 MG CAP PO ONE (11:19)
[2023-10-21] MEDS ORDERED: FUROSEMIDE 20 MG/ 2ML VIAL ONE (11:19)
[2023-10-21 12:38] VITALS: TEMP 97.6
[2023-10-21 12:43] VITALS: BP 115/75; O2SAT 98
--- NOTE | 2023-10-23 17:05 | EKG ---
Test Date: 2023-10-21 Test Time: 09:37:52 Outpatient Physical Therapist: KEEGAN MEASUREMENT RESULTS: Intervals: Rate: 73 NH: 350 QRSD: 96 QT: 402 QTc: 442 [place]: P: 67 NH: 350 QRS: 130 T: 42 INTERPRETIVE STATEMENTS: Sinus rhythm with 1st degree AV block Left posterior fascicular block Anteroseptal infarct, age undetermined Abnormal ECG Compared to ECG 01/16/2015 06:53:39 First degree AV block now present Left posterior fascicular block now present Myocardial infarct finding now present Sinus bradycardia no longer present T-wave abnormality no longer present Electronically Signed On 10-23-23 17:00:22 CDT by Daryn Martinez
== END 2023-10-21 12:19 | disposition home or self-care (01) ==
LOC: ER 08:29
DX: J10.1 Influenza due to other identified influenza virus with other respiratory manifestations (principal); I50.42 Chronic combined systolic (congestive) and diastolic (congestive) heart failure; Z11.52 Encounter for screening for COVID-19
CPT/HCPCS: 93005; 87040 ×2; 85025; 80048; 36415; 83735; 85610; 80076; 83605; 84484; 83880; 87804 ×2; 71046; 96374; 99285; 87811; J1940; J7614; J7644